=== PATIENT | male | born 1965 | race African-American/Black ===

== ENCOUNTER 2021-06-19 18:10 | Inpatient (IN) | payer BC ==
[~2021-06-19] VITALS: Ht 180.3 cm; Wt 117.5 kg
--- NOTE | ~2021-06-19 | HC ---
[facility] [place] [address] CONSULTATION Name: GERMAIN MCCOLLUM Griselda Room #: 363-P [facility] IN .R.#: [id number] Admission: 06/19/21 Attend Phys: Silvestre Mcfadden Discharge: Date of : 65 Report #: [id number] THIS REPORT FOR: cc: Jameson Mejia MD, Darren E. MD Khosla,Bear Burns MD ~ DATE OF SERVICE: 06/20/2021 HISTORY OF PRESENT ILLNESS: This is a 56-year-old male patient who was seen by me for numbness on the left side of the body. It was [address] scan of the head and CT angiogram were done in the emergency room, and they were mostly unremarkable. Since then, an MRI was done, which demonstrated an acute stroke in the right thalamus. The patient's symptoms are about the same. In fact, his symptoms were going on for 24 hours before he came into the hospital. REVIEW OF SYSTEMS: Positive for multiple problems. There is mostly neuroendocrine problem. 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 He denies any prior history of stroke. He was hypertensive when he came in, but his blood pressure was only 153/88. It has fluctuated some, but it has never been very high. He does have some hypothyroidism. He has some eye symptoms on examination, but he saw an watch adjuster about 2 weeks ago and he indicated that he has the same visual field as he has before. He says that he has some diabetes and he takes metformin for that. This was his relevant 14-point review of system. PAST MEDICAL HISTORY: Positive for multiple neuroendocrine problems. FAMILY HISTORY: Unremarkable. 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 He drinks alcohol on special occasions, and he has a history of smoking. PHYSICAL EXAMINATION: NEUROLOGIC: He is alert and responsive, able to follow simple commands. His speech, concentration, fund of knowledge and memory are at his baseline. Cranial nerve examination 2-12 looks mostly unremarkable except for visual field deficit in the right eye, in the temporal field especially, and some question of weakness on the left side of the face. He does appear to be weaker on the left side than the right side, but his reflexes are diminished, but appear to be present. He did reasonably well on the position sense on both sides. There is no meningeal sign. There is no carotid bruit. He is a very well-developed individual. His hearing and vision looks adequate. VITAL SIGNS: His blood pressure is 139/90, respirations 19, pulse is 60, temperature is 97.6. [address] [address] CONSULTATION Name: GERMAIN MCCOLLUM Room #: 363-P [facility] IN M.R.#: [id number] Admission: 06/19/21 Attend Phys: Silvestre Mcfadden Discharge: Date of : 65 Report #: [id number] His white count is 5.5. His pulses are somewhat difficult to feel. He has no edema, cyanosis or jaundice. Multiple of his imaging studies were reviewed. IMPRESSION: Acute cerebrovascular accident, most likely because of small vessel disease, but I am not sure about that because he does have some vascular risk factors, but is not very pronounced. He needs workup to exclude any other etiology. I ordered the blood workup, and he needs an echo with a bubble study. He needs a dual antiplatelet therapy. Unfortunately, these patients can become worst for next 7-10 days, that is the typical course for lacunar CVA. Hopefully, aspirin and Plavix will be able to prevent that. I discussed that aspect with the patient, and I discussed indication and potential complication of aspirin and Plavix and also may be he wants to follow this approach Thank you very much for this referral, and we will follow this patient along with you. By: 1100 [id number] Bear Peña MD /nt
[~2021-06-19 18:10] MED LIST: CREON; GLUCOPHAGE XR500 MG PO; LEVOTHROID; LISINOPRIL-HCT1 EAC2; NORCO 5-325 TA1 EACH PO; VITAMIN D1000 UNI1 PO
[2021-06-19 19:31] LABS: ABSOLUTE NEUTROPHILS 3.4 thou/uL (1.4-8.2); BASOPHILS 0.5 % (0.0-2.0); EOSINOPHILS 1.8 % (0.0-3.0); HEMATOCRIT 39.8 % (42.0-52.0); HEMOGLOBIN 12.8 gm/dL (14.0-18.0); LYMPHOCYTES 27.5 % (24.0-44.0); MCH 28.5 pg (26.0-34.0); MCHC 32.2 g/dL (28.0-37.0); MCV 88.5 fL (80.0-100.0); MONOCYTES 8.3 % (1.0-8.0); PLATELET COUNT 202 thou/uL (150-400); POLYS 61.9 % (36.0-66.0); RBC 4.49 mil/uL (4.50-6.00); RDW 14.1 % (10.5-14.5); WBC 5.5 thou/uL (4.0-11.0)
[2021-06-19 19:41] LABS: INR 0.88; PROTIME 9.7 Seconds (10.5-12.1)
[2021-06-19 19:48] LABS: CALCIUM 9.3 mg/dL (8.5-10.1); CREATININE 1.2 mg/dL (0.7-1.3); POTASSIUM 4.3 mmol/L (3.5-5.1)
[2021-06-19 19:55] LABS: ALBUMIN 3.4 g/dL (3.4-5.0); TOTAL BILIRUBIN 0.4 mg/dL (0.2-1.0); TOTAL PROTEIN 6.9 g/dL (6.4-8.2)
[2021-06-19 21:33] LABS: URINE BILIRUBIN NEGATIVE (Negative); URINE BLOOD NEGATIVE (Negative); URINE CLARITY CLEAR; URINE COLOR YELLOW; URINE GLUCOSE-RANDOM* 2+ (Negative); URINE KETONES TRACE (Negative); URINE LEUKOCYTES-REFLEX NEGATIVE (Negative); URINE NITRITE-REFLEX NEGATIVE (Negative); URINE PROTEIN (DIPSTICK) NEGATIVE (Negative); URINE SPECIFIC GRAVITY >= 1.030 (1.005-1.035); URINE UROBILINOGEN 0.2 E.U./dl (0.2-1.0)
[2021-06-19 21:44] LABS: AMP/METHAMP Negative (Negative); BARBITURATES Negative (Negative); BENZODIAZEPINES Negative (Negative); COCAINE Negative (Negative); METHADONE Negative (Negative); OPIATES Negative (Negative); PCP Negative (Negative)
[2021-06-20 00:24] VITALS: BP 184/92
[2021-06-20] MEDS ORDERED: LEVO-T100 MCG PO (00:36)
[2021-06-20] MEDS ORDERED: JARDIANCE10 MG PO (00:36)
[2021-06-20] MEDS ORDERED: ERYTHROMYCIN250 M1 PO (00:37)
[2021-06-20] MEDS ORDERED: BROMOCRIPTINE2.5 M1 PO (00:37)
[2021-06-20] MEDS ORDERED: METFORMIN HCL500 M3 PO (00:38)
[2021-06-20 01:28] VITALS: BP 143/83
--- NOTE | 2021-06-20 03:56 | NUR ---
PT ALERT AND ORIENTED X4. VSS AFEBRILE SATS WNL ON RA. PT ADMIITED FROM ER WITH STROKE LIKE SYPMTOMS LEFT SIDED WEAKNESS AND NUMBNESS, RENAL INSUFFICIENCY AND SYNCOPE. INSTRUCTED PT ON FALL PRECAUTIONS. SCDS ON. BED ALARM ON. VOIDS CLEAR YELLOW URINE PER URINAL. NO C/O PAIN. SEE NIH ABNORMALITIES. WILL CALL NEUROLOGY CONSULT IN AM. FAXED MRI SCREEN TO MRI.
[2021-06-20 06:05] VITALS: BP 149/89
[2021-06-20 07:44] VITALS: BP 139/90
--- NOTE | 2021-06-20 08:08 | NUR ---
PT HAS HAD NO C/O TONIGHT. LEFT ARM CONTINUES TO DRIFT SLIGHTLY. LEFT LEGS HAS DIMINISHED SENSATON TO PIN TOUCH COMPARED TO RLE. HE IS ABLE TO STND AND WALK WITH STANDBY ASSISTANCE. BED ALRM ON FOR FALL SAFETY DUE TO LEFT SIDED WEAKNESS.
[2021-06-20 08:10] LABS: CALCIUM 9.1 mg/dL (8.5-10.1); POTASSIUM 4.2 mmol/L (3.5-5.1)
--- NOTE | 2021-06-20 08:12 | NUR ---
NOTIFIED DAY SHIFT NS TO ENSURE PT GETS MODIFIED LEE SCORE DONE PRIOR TO DISCHARGE AMD MRI STILL NEEDED TO GET DONE TODAY. NEUROLOGY CONSULT PENDING.
--- NOTE | 2021-06-20 08:16 | EKG ---
[address] [place] [address] ELECTROCARDIOGRAM REPORT Name: GERMAIN MCCOLLUM Room #: 363- ADM IN M.R.#: [id number] Admission: 06/19/21 Attend Phys: Silvestre Mcfadden Discharge: Date of : 65 Report #: [id number] [facility] ED Test Date: 2021-06-19 Test Time: 18:26:38 Pat Name: GERMAIN MCCOLLUM Department: Room: [facility] Gender: M Manager Of Exhibitions And Collections: BENI : 1965 Requested By: Sandra Maxwell Order Number: [id number] MD: Akil Almaguer Measurements Intervals [place] Rate: 77 P: 43 WA: 139 QRS: 8 QRSD: 95 T: 27 QT: 362 QTc: 410 Interpretive Statements Sinus rhythm Nonspecific T wave abnormality Compared to ECG 05/25/2014 23:14:28 No significant changes Electronically Signed On 06-20-2021 8:16:26 [employer] by Akil Almaguer [email or web address] <ELECTRONICALLY SIGNED> By: Akil Almaguer MD, [facility] 06/20/21 0816 [id number] Akil Almaguer MD, FACC /EPI
[2021-06-20] MEDS ORDERED: LISINOPRIL-HCT1 EAC2 PO (13:02)
[2021-06-20] MEDS ORDERED: CREON DR 24,001 EACH PO (13:04)
--- NOTE | 2021-06-20 14:37 | NUR ---
INITIAL ASSESSMENT: Received consult for discharge planning. SW reviewed chart and spoke with nursing and attending physician. Pt was admitted from home due to left-sided weakness. Neuro consulted. MRI completed earlier today. 5N consulted for possible admission to in acute rehab. Therapy evals ordered. SW met with pt at bedside. Introduced role of SW. Pt is alert/orientated z 4. Pt reports he lives at home with his . Prior to admission, pt was independent with ADLs. No use of DME. No hx of HH or post-acute placement. Pt's PCP is Dr. Jameson Mejia. Discharge is anticipated for tomorrow. 5N is following. Pt states that he should be able to return home. Pt may need a script for outpatient therapy. SW explained process for arranging outpatient therapy. Pt verbalized understanding. SW is following to assist as needed with discharge planning.
--- NOTE | 2021-06-20 18:38 | NUR ---
Pt A & O x4. Pt worked with PT/OT this shift. PT is independent with cares and ADLs and is up ad layne. Pt VS stable. Pt is NSR on the tele. Pt received medications as ordered. Pt is room air. pt is ranking a 2 on NIH scale. Pt is able to make needs known
[2021-06-20 20:36] VITALS: BP 133/81
[2021-06-20 23:38] VITALS: BP 120/70
[2021-06-21 02:06] LABS: GLYCOHEMOGLOBIN (HGB A1C) 8.4 % (4.8-5.6)
--- NOTE | 2021-06-21 04:15 | NUR ---
PT IS A&OX4 AND ABLE TO COMMUNICATE WANTS AND NEEDS TO STAFF. PT ADMITTED FOR CVA ON MRI IMAGING, HAS HAD MINIMAL NOTED RESIDUALS THIS SHIFT, SCORING 1-2 ON MODIFIED NIH SCALE. SOME NUMBNESS/SENSATION LOSS REPORTED BY PT, BUT NO NOTICABLE LOSS OF STRENGTH OR FUNCTION NOTED TO LEFT SIDE. PT IS ABLE TO STAND AND AMBULATE WITH SBA, HAS BEEN USING URINAL TO VOID THIS SHIFT. PT ON ROOM AIR, SINUS RHYTHM ON FOOD SANITARIAN. WILL CONTINUE TO OBSERVE FOR CHANGES
[2021-06-21 04:40] VITALS: BP 100/53
[2021-06-21 07:55] LABS: CHOLESTEROL 189 mg/dL (<200); HDL CHOLESTEROL 48 mg/dL (>40); LDL CHOLESTEROL 113 mg/dL (<100); TC:HDL 3.9 Ratio (Not establshd); TRIGLYCERIDE 144 mg/dL (<150); VLDL 29 mg/dL (<40)
[2021-06-21 09:24] VITALS: BP 105/60
[2021-06-21] MEDS ORDERED: PLAVIX 75 MG TA75 MG PO (11:10)
[2021-06-21] MEDS ORDERED: ADULT LOW DOSE81 MG PO (11:10)
--- NOTE | 2021-06-21 11:57 | 2DMMODE ---
[facility] [place] [address] 2 D/M-MODE ECHOCARDIOGRAM Name: VEDAGERMAIN D Room #: 363-P ADM IN M.R.#: [id number] Admission: 06/19/21 Attend Phys: Silvestre Mcfadden Discharge: Date of : 65 Report #: [id number] THIS REPORT FOR: cc: Jameson Mejia MD, Darren E. MD Santiago, Patrick MD [facility] ~ APPROVED REPORT Study performed: 06/21/2021 11:00:20 EXAM: Comprehensive 2D, Doppler, and color-flow Echocardiogram Patient Location: Bedside Room #: 363 Status: routine BSA: 2.36 HR: 72 bpm BP: 105/60 mmHg Rhythm: NSR Other Information Study Quality: Adequate Indications CVA Echo Enhancing Agent Indication: Rule out Shunt Agent(s) / Amount(s) Used: Agitated Saline 7 cc 2D Dimensions IVSd: 10.78 (7-11mm) LVOT Diam: 23.29 (18-24mm) LVDd: 48.59 mm PWd: 11.01 (7-11mm) Ascending Ao: 31.84 (22-36mm) LVDs: 34.38 (25-40mm) Left Atrium: 31.69 (27-40mm) Aortic Root: 34.35 mm Volumes Left Atrial Volume (Systole) Single Plane 4CH: 41.11 mL Single Plane 2CH: 41.87 mL LA ESV Index: 19.00 mL/m2 Aortic Valve AoV Peak Candelario.: 1.49 m/s [facility] [address] [place] [address] 2 D/M-MODE ECHOCARDIOGRAM Name: GERMAIN MCCOLLUM Room #: 363-P [facility] IN ..#: [id number] Admission: 06/19/21 Attend Phys: Silvestre Baker Discharge: Date of : 65 Report #: [id number] Peak Gr.: 8.89 mmHg LVOT Max P.18 mmHg LVOT Max V: 1.02 m/s DEON Vmax: 2.92 cm2 Mitral Valve E/A Ratio: 1.3 MV Decel. Time: 160.47 ms MV E Max Candelario.: 0.52 m/s MV A Candelario.: 0.41 m/s MV PHT: 46.54 ms IVRT: 83.04 ms Pulmonary Valve PV Peak Candelario.: 0.73 m/s PV Peak Gr.: 2.14 mmHg Pulmonary Vein P Vein S: 0.43 m/s P Vein D: 0.33 m/s P Vein S/D Ratio: 1.30 Tricuspid Valve TR Peak Candelario.: 1.72 m/s RAP Estimate: 5.00 mmHg TR Peak Gr.: 12.00 mmHg PA Pressure: 17.00 mmHg Left Ventricle The left ventricle is normal size. There is normal LV segmental wall motion. There is normal left ventricular wall thickness. Left ventricular systolic function is normal. LVEF is 55%. Right Ventricle The right ventricle is normal size. The right ventricular systolic function is normal. Atria The left atrium size is normal. The right atrium size is normal. No shunting noted with bubble study. Aortic Valve The aortic valve is normal in structure. No aortic regurgitation is present. There is no aortic valvular stenosis. Mitral Valve The mitral valve is normal in structure. There is no mitral valve regurgitation noted. No evidence of mitral valve stenosis. [facility] [place] [address] 2 D/M-MODE ECHOCARDIOGRAM Name: GERMAIN MCCOLLUM Room #: 363-P [facility] IN .R.#: [id number] Admission: 06/19/21 Attend Phys: Silvestre Baker Discharge: Date of : 65 Report #: [id number] Tricuspid Valve The tricuspid valve is normal in structure. Trace tricuspid regurgitation. Estimated PAP is 17mmHg. Pulmonic Valve The pulmonary valve is normal in structure. Trace pulmonic regurgitation. Great Vessels The aortic root is normal in size. The ascending aorta is normal in size. IVC is not well visualized. Pericardium There is no pericardial effusion. <Conclusion> Normal left ventricle size/wall thickness Ejection fraction 55% Normal right ventricle size/function Normal atrial size Normal aortic/mitral valve structure and function Trace tricuspid valve insufficiency Pulmonary systolic pressure estimated 17 mmHg No pericardial effusion Normal aortic root size <ELECTRONICALLY SIGNED> By: Allen Salcedo MD, FACC 06/21/21 115 56 56 Allen Salcedo MD, FAC /INF
--- NOTE | 2021-06-21 11:59 | NUR ---
I have reviewed the documentation by LEOBARDO QUINN from 06/20/21 to 06/20/21 and I concur with it. STEVEN MENDEZ
[2021-06-21] MEDS ORDERED: THERAPY (15:03)
--- NOTE | 2021-06-21 16:56 | NUR ---
I have reviewed the documentation by LEOBARDO QUINN from 06/21/21 to 06/21/21 and I concur with it. STEVEN MENDEZ
[2021-06-21 17:10] VITALS: BP 105/60
[2021-06-21 17:22] VITALS: BP 137/84
--- NOTE | 2021-06-21 20:12 | NUR ---
RN ASSUMED PT'S CARE AT 0700-1900PM, PT IS A&OX4, PT IS ON ROOM AIR, PT'S VS AND O2SAT ARE STABLE, PT 'S WEAKNESS HAVE IMPROVED, PT CAN WALK TO BATH ROOM WITHOUT ASSIST, NEUROLOGY HAS SEEING THE PT TODAY, RN HAS RECEIVED ORDER TO DC PT TO HOME WITH PT/OT, PT AND PT'S UNDERSTAND DC TEACHING WELL , PT'S DBA MANAGER PT TO HOME AT 1900PM. PT DENIES PAIN AND SOB .
[2021-06-25 12:06] LABS: ANA INTERPRETATION Negative (Negative)
[2021-06-26 21:05] LABS: SYPHILIS AB Non Reactive (Non Reactive)
== END 2021-06-21 19:01 | disposition home or self-care (01) | DRG 65 ==
LOC: ER 18:10 → 3W 23:52 → EROBS 23:52 → 3W 06-20 01:00 → ER 06-20 01:00 → 3W 06-20 01:05
PROVIDERS: Nurse Practitioner Family; Psychiatry & Neurology Neuromuscular Medicine; ADMIT Hospitalist; ATTEND Hospitalist
DX: I63.89 Other cerebral infarction (principal); G81.94 Hemiplegia, unspecified affecting left nondominant side; Z20.822 Contact with and (suspected) exposure to COVID-19; E03.9 Hypothyroidism, unspecified; I63.9 Cerebral infarction, unspecified; E11.9 Type 2 diabetes mellitus without complications; Z87.891 Personal history of nicotine dependence; Z82.49 Family history of ischemic heart disease and other diseases of the circulatory system
CPT/HCPCS: 10879